=== PATIENT | male | born 1980 | race Caucasian/White ===

== ENCOUNTER 2016-10-29 16:35 | Emergency (ER) | payer OTHER ==
--- NOTE | ~2016-10-29 | CR151 ---
[facility] A Service of [facility] & [facility] RADIOLOGY TEXT RESULTS PATIENT: AUGUST LIU LOCATION: CFTX : 76 UNIT #: [id number] AGE: [address]: Yessica Jessica SEX: M ORDER DR: [id number] [facility] [address] [place], [place] [address] [id number] E MR#: [id number] Acc #: [id number] NAME: AUGUST LIU : 1980 SEX: M STUDY DATE/TIME: 10/29/2016 16:14 UNIT: [facility] ROOM: STUDY DESCRIPTION: CR Hip Min 2 Views Rt Attending Physician: Yessica Jessica P.A.-C. Ordering Physician: Yessica Jessica P.A.-C. Primary Care Physician: Primary Care Physician No MEDICAL IMAGING REPORT This report is preliminary unless electronic signature is present EXAM Right hip, 2 views, 10/29/2016 HISTORY Right hip pain and swelling for 6 days after stepping off a tailgate. FINDINGS AP and oblique examination of the hip shows adequate mineralization of the bones and a normal anatomic relationship of the femoral head with the acetabulum. There are no hypertrophic changes, fractures, dislocation, or joint capsular distension. No radiopaque foreign body is present about the soft tissues of the hip. IMPRESSION Normal hip. Dictated by... Ori Emery M.D. THIS IS AN ELECTRONICALLY VERIFIED REPORT Ori Emery M.D. at 10/30/2016 10:49 AM KRT/satish TD: 10/29/2016 23:21 JOB #: [id number] MEDICAL IMAGING REPORT COPY
--- NOTE | ~2016-10-29 | CR173 ---
[facility] A Service of [facility] & [facility] RADIOLOGY TEXT RESULTS PATIENT: UAGUST LIU LOCATION: CFT[facility] : 76 UNIT #: [id number] AGE: [address]: Yessica Jessica SEX: M ORDER DR: [id number] [facility] [address] [place], [place] [address] [id number] E MR#: [id number] Acc #: [id number] NAME: AUGUST LIU : 1980 SEX: M STUDY DATE/TIME: 10/29/2016 16:10 UNIT: [facility] ROOM: STUDY DESCRIPTION: CR Knee 3 Views Rt Attending Physician: Yessica Jessica P.A.-C. Ordering Physician: Yessica Jessica P.A.-C. Primary Care Physician: Primary Care Physician No MEDICAL IMAGING REPORT This report is preliminary unless electronic signature is present EXAM Right knee, 3 views, 10/29/2016 HISTORY Right knee pain and swelling for 6 days after stepping off a tailgate. FINDINGS 3 views of the right knee demonstrate postsurgical changes of prior ligament repair. The joint space is normally maintained. The bones are normally mineralized. There is no joint effusion. IMPRESSION Postsurgical changes involving the right knee. No acute abnormality. Dictated by... Ori Emery M.D. THIS IS AN ELECTRONICALLY VERIFIED REPORT Ori Emery M.D. at 10/30/2016 10:49 AM ZAHIDA/satish TD: 10/29/2016 23:19 JOB #: [id number] MEDICAL IMAGING REPORT COPY
[~2016-10-29 16:35] MED LIST: ADDERALL5 MG; HYDROCODONE-A1 UDTA4 PO; ROBAXIN 750750 M1 PO
== END 2016-10-29 16:48 | disposition home or self-care (01) ==
LOC: CFTX 16:35
DX: S83.411A Sprain of medial collateral ligament of right knee, initial encounter (principal); W19.XXXA Unspecified fall, initial encounter
CPT/HCPCS: 29505; 73502; 73562; 99284